=== PATIENT | female | born 1960 | race Caucasian/White ===

== ENCOUNTER 2022-10-08 16:16 | Emergency (ER) | payer BC ==
[2022-10-08 16:24] VITALS: BP 132/84; PULSE 82; RESP 16; TEMP 98; BMI 25.7
[2022-10-08] MEDS ORDERED: ACETAMINOPHEN 1000 MG/100 ML BAG IVPB ONE ×2 (17:02→17:03)
[2022-10-08] MEDS ORDERED: MAG HYDROX/AL HYDROX/SIMETH 30 ML UNIT-DOSE CUP PO ONE (17:02)
[2022-10-08] MEDS ORDERED: FAMOTIDINE 20 MG/50 ML IVPB 20 MG/50 ML MG IVPB ONE ×2 (17:02→17:16)
[2022-10-08] MEDS ORDERED: ACETAMINOPHEN INJECTION 100 ML IVPB ONE (17:16)
[2022-10-08] MEDS ORDERED: MAG HYDROX/AL HYDROX/SIMETH 30 ML UNIT-DOSE CUP ONE (17:16)
[2022-10-08 17:56] LABS: BASO % 1.1 % (0-2.0); EOS % 2.5 % (0-4.5); HEMATOCRIT 44.3 % (32.4-45.2); HEMOGLOBIN 14.7 GM/dL (10.7-15.3); LYMPH % 51.4 % (8-40); MCH 31.6 pg (25.7-33.7); MCHC 33.2 g/dl (32.0-36.0); MEAN CELL VOLUME 95.3 fl (80-96); MEAN PLT VOLUME 8.4 fl (7.5-11.1); MONO % 6.8 % (3.8-10.2); NEUT % 38.2 % (42.8-82.8); PLATELET COUNT 276 10^3/uL (134-434); RBC 4.65 M/mm3 (3.60-5.2); RDW 13.9 % (11.6-15.6); WHITE BLOOD COUNT 6.4 K/mm3 (4.0-10.0)
[2022-10-08 18:09] LABS: POTASSIUM 4.3 mmol/L (3.5-5.1)
[2022-10-08 18:12] LABS: CALCIUM 9.5 mg/dL (8.5-10.1)
[2022-10-08 18:13] LABS: ALBUMIN 3.7 g/dl (3.4-5.0); BLOOD UREA NITROGEN 8.7 mg/dL (7-18)
[2022-10-08 18:16] LABS: CREATININE 0.7 mg/dL (0.55-1.3)
[2022-10-08 18:17] LABS: BILIRUBIN,TOTAL 0.2 mg/dL (0.2-1)
== END 2022-10-08 20:46 | disposition home or self-care (01) ==
LOC: JER 16:16
PROC: 3E033GC Introduction of Other Therapeutic Substance into Peripheral Vein, Percutaneous Approach (ICD-10-PCS; principal; 2022-10-08)
PROC: 3E033GC Introduction of Other Therapeutic Substance into Peripheral Vein, Percutaneous Approach (ICD-10-PCS; 2022-10-08)
DX: R20.0 Anesthesia of skin (principal); R20.2 Paresthesia of skin
CPT/HCPCS: 36415; 70450-TC; 71046-TC-FY; 72125-TC; 80053; 84484; 85025; 93005; 93010; 99285-25

== ENCOUNTER 2023-06-12 10:42 | Emergency (ER) | payer BC ==
[2023-06-12 10:46] VITALS: BP 124/84; PULSE 100; RESP 18; TEMP 97.5; BMI 26.2
== END 2023-06-12 13:44 | disposition home or self-care (01) ==
LOC: JERFT 10:42 → JER 10:42 → JERFT 13:44
DX: M25.571 Pain in right ankle and joints of right foot (principal); S93.401A Sprain of unspecified ligament of right ankle, initial encounter; W01.0XXA Fall on same level from slipping, tripping and stumbling without subsequent striking against object, initial encounter
CPT/HCPCS: 73610-TC-RT-FY; 73630-TC-RT-FY; 99283-25